=== PATIENT | male | born 1975 | race Hispanic/Latino ===

== ENCOUNTER 2020-06-19 08:01 | Emergency (ER) | payer SELFPAY ==
[2020-06-19] MEDS ORDERED: Ondansetron PF 4 MG/2 ML Vial ONE (08:11)
[2020-06-19] MEDS ORDERED: Morphine 4 MG/ML VIAL ONE (08:11)
--- NOTE | 2020-06-19 08:40 | CT ---
EXAM: CT cervical spine PROVIDED CLINICAL HISTORY: Trauma. Patient fell out of truck. Patient reports headache and neck pain. TECHNIQUE: Contiguous axial CT images are obtained through the cervical spine from the skull base to the T2-3 le chuck. Sagittal and coronal reformatted images are provided. COMPARISON: None FINDINGS: No evidence for fracture or traumatic subluxation. Scattered degenerative changes are seen in the cervical spine greatest at C5-6 level where there is d isc osteophyte complex which does result in effacement of the ventral subarachnoid space. No prevertebral soft tissue swelling apparent. Visualized lung apices appear clear. Visualized thyroid gland demonstrates a grossly normal nonenhanced CT appearance. IMPRESSION: No evidence for fracture or traumatic subluxation.
--- NOTE | 2020-06-19 08:41 | RAD ---
Frontal radiograph chest: 06/19/2020 HISTORY: Fell out of a truck, trauma, pain FINDINGS: No pneumothorax or pleural fluid. No focal consolidation or alveolar edema. Heart and media stinal contours are grossly unremarkable IMPRESSION: No acute findings.
--- NOTE | 2020-06-19 08:42 | RAD ---
Exam:One view right hip HISTORY: Fall. COMPARISON: None FINDINGS: Dislocation of the right humeral head with respect to the acetabulum. No obvious fractures. Postreduction films are recommended. IMPRESSION: Dislocation. Postreduction films are recommended.
[2020-06-19 08:43] LABS: #Basophils 0.1 thou/uL (0.0-0.2); #Eosinphils 0.1 thou/uL (0.0-0.7); #Lymphocytes 2.6 thou/uL (1.20-3.40); #Monocytes 0.7 thou/uL (0.11-0.59); #Neutrophils 9.1 thou/uL (1.40-6.50); %Basophils 0.6 % (0.0-1.0); %Eosinophils 0.7 % (0.0-10.0); %Lymphocytes 20.5 % (21.0-51.0); %Monocytes 5.4 % (0.0-10.0); %Neutrophils 72.9 % (42.0-75.0); Hemoglobin 14.8 g/dL (14.0-18.0); Mean Corpuscular HGB CONC 34.7 g/dL (32.0-36.0); Mean Corpuscular Hemoglobin 30.9 pg (27.0-31.0); Mean Corpuscular Volume 89.2 fL (78.0-98.0); Mean Platelet Volume 9.5 fL (7.4-10.4); Platelet Count 275 thou/uL (130-400); RBC Distribution Width 11.7 % (11.5-14.5); Red Blood Cell (RBC) Count 4.77 mill/uL (4.70-6.10); White Blood Cell (WBC) Count 12.5 thou/uL (4.8-10.8)
--- NOTE | 2020-06-19 08:44 | CT ---
CT of thefacial bones: 06/19/2020 COMPARISON:None available HISTORY:Trauma, pain TECHNIQUE: Serial axial CT imaging at2.5 mm intervals through the facial bones without contrast. Cor onal and sagittal reformatted imaging obtained Findings:The frontal sinuses, maxillary sinuses, sphenoid sinuses, and ethmoid air cells appear well- aerated. Partially imaged mastoid air cells are well-aerated as well. The mandible and the temporomandibular joints appear intact. No displaced nasal bone fracture. The zy gomatic arches and the pterygoid plates appear intact. The orbital floor and the medial orbital wall demonstrates no evidence for fracture. The posterior mo st maxillary tooth on the right demonstrates an abnormal horizontal configuration with the crown of the tooth directed laterally. There is soft tissue swelling inferior to the right orbit. Impression:Infraorbital soft tissue swelling on the right. No associated fracture.
--- NOTE | 2020-06-19 08:50 | CT ---
CT BRAIN: Date: 06/19/2020 PROVIDED CLINICAL HISTORY: Trauma. FINDINGS: No comparisons. Ventricular system appears normal in size and morphology. There is no evidence for intracranial hemor rhage or mass effect. The extracranial soft tissues and osseous structures demonstrate an unremarkabl e CT appearance. IMPRESSION: No evidence for intracranial hemorrhage or mass effect. POS: [facility]
--- NOTE | 2020-06-19 08:54 | RAD ---
PELVIS 1 VIEW: Date; 06/19/2020 HISTORY: Fall from a truck. COMPARISON: None. FINDINGS: Superior and likely posterior dislocation of the right hip joint. Possible linear lucency of the acet abulum in a transverse orientation. The obturator rings are intact. The right femoral neck appears to be foreshortened, although could be positional. IMPRESSION: 1. Superior dislocation and possibly posterior displacement of the right hip approximately 2.4 cm. L ateral radiographs may be beneficial. 2. Subtle linear lucency of the right acetabulum could be sequelae of Mach band from the overlying anterior acetabular wall versus nondisplaced transversely oriented fracture. 3. Foreshortened right femoral neck may be sequelae of rotation. POS: [facility]
[2020-06-19 09:05] LABS: ALT (SGPT) 30 U/L (8-55); AST (SGOT) 24 U/L (5-34); Albumin 4.2 g/dL (3.5-5.0); Alkaline Phosphatase 81 U/L (40-110); Anion Gap 16 mmol/L (10-20); BUN (Urea Nitrogen) 19 mg/dL (8.9-20.6); Bilirubin, Total 0.3 mg/dL (0.2-1.2); Calc. Creatinine Clearance 0 mL/min (70-130); Calcium 9.5 mg/dL (7.8-10.44); Carbon Dioxide 20 mmol/L (22-29); Chloride 108 mmol/L (98-107); Estimated GFR-MDRD 85; Globulin 2.8 g/dL (2.4-3.5); Glucose 120 mg/dL (70-105); Sodium 140 mmol/L (136-145)
[2020-06-19] MEDS ORDERED: Ketamine 50 MG/ML (10ML VIAL) ONE (09:15)
--- NOTE | 2020-06-19 09:56 | CT ---
CT PELVIS WITHOUT CONTRAST: DATE: 06/19/2020. PROVIDED CLINICAL HISTORY: Right hip dislocation status post reduction. FINDINGS: Evaluation is mildly limited by patient motion. The femoral acetabular relationships appear normal. There are multiple small foci of intraarticular gas on the right compatible with vacuum phenomenon. There is a small right hip joint effusion. There is no evidence for a fracture. Alignment appears anatomic. Joint spaces appear maintained. There is reticulation of the subcutaneous adipose layer a t the medial aspect of the right superior gluteal region compatible with bruising or edema. Multiple metallic densities are seen within the anterior abdominal wall right of midline. IMPRESSION: No evidence for fracture. POS: [facility]
== END 2020-06-19 10:45 | disposition home or self-care (01) ==
LOC: ERS 08:01
DX: S73.014A Posterior dislocation of right hip, initial encounter (principal); F17.210 Nicotine dependence, cigarettes, uncomplicated; V89.9XXA Person injured in unspecified vehicle accident, initial encounter
CPT/HCPCS: 27250; 36415; 70450; 70486; 71045; 72125; 72170; 72192; 80053; 85025; 96374; 96375; 99156; J2270; J2405